=== PATIENT | female | born 1940 | race Caucasian/White ===

== ENCOUNTER 2017-03-13 22:14 | Inpatient (IN) | payer OTHER ==
--- NOTE | ~2017-03-13 | HP ---
History And Physical [place] [address] [facility] [place]. [address] NAME: SOPHIE NEGRON : 42 STATUS : ADM IN [facility]#: [id number] AGE: 76 ADM/REG DATE : 03/13/17 MR#: [id number] REPORT SERV DATE: 03/14/17 DICTATED BY: SEFERINO IQBAL III DATE: 03/14/17 REPORT STATUS : Draft TRANSCRIBED BY: MODL DATE: 03/14/17 DATE OF ADMISSION: 03/13/2017 HISTORY OF PRESENT ILLNESS: This 76-year-old female is admitted to the hospital in direct transfer from the emergency room at [facility] at the patient's request. The patient complains of a 24-hour history of profuse nausea and vomiting. She states that she awoke at 3 o'clock in a.m. yesterday with severe nausea and vomiting. This was associated with diffuse crampy abdominal pain. These symptoms persisted. The patient presented to the emergency room and a CT scan of the abdomen and pelvis was performed there, which showed evidence for partial small bowel obstruction. The patient was evaluated there and felt to be stable for transfer and was transferred here at the patient's request. This morning, she states she feels better. She has only mild abdominal pain. The patient has no prior history of similar symptoms. She has had no diarrhea. She has had no fever or chills. She had one bowel movement yesterday. The patient has had a previous appendectomy, cholecystectomy, and hysterectomy. REVIEW OF SYSTEMS: The patient complains of left-sided earache for sometime. She has been seen by her primary care physician regarding this as well as an ENT physician and was started recently on antibiotics. ALLERGIES: NONE. PAST SURGICAL HISTORY: Includes status post hysterectomy, cholecystectomy, and appendectomy. MEDICATION: Iron. FAMILY HISTORY: Unremarkable. PHYSICAL EXAMINATION: GENERAL: She is a female, in no acute distress. She is alert and oriented x3. VITAL SIGNS: Blood pressure 90/54, pulse 86, temperature 98.4. HEENT: Unremarkable. Cranial cervical II through XII were normal. LUNGS: Clear. CARDIAC: Normal. ABDOMEN: Soft, flat and completely nontender. EXTREMITIES: Normal with no edema. DIAGNOSTIC DATA: CT scan of the abdomen and pelvis reportedly shows evidence for partial small bowel obstruction. This was performed at [facility]. I do not have this available for review, but this was resulted according to Dr. Frey the ER physician who evaluated her at [facility]. History And Physical [address] [address] NAME: SOPHIE NEGRON : 42 STATUS : ADM IN PAT#: [id number] AGE: 76 ADM/REG DATE : 03/13/17 MR#: [id number] REPORT SERV DATE: 03/14/17 DICTATED BY: SEFERINO IQBAL III DATE: 03/14/17 REPORT STATUS : Draft TRANSCRIBED BY: KALEB DATE: 03/14/17 LABORATORY DATA: White blood cell count 13,000, hematocrit 41. Electrolytes are unremarkable. ASSESSMENT: A 76-year-old female with acute onset of nausea, vomiting, abdominal pain, possibly secondary to partial small bowel obstruction. PLAN: The patient will be admitted and started on parenteral fluids and bowel rest. I have requested a repeat KUB for today. At this time, the patient's symptoms seem to be resolving spontaneously. I have explained her that surgical intervention may be required if she does not improve with nonoperative management, but this seems to be unlikely. This plan has been explained to the patient. Her questions have been answered. She understands and agrees to this plan. CRAIG/KALEB Seferino Iqbal III, M.D. / [id number] CC: Seferino Iqbal III, M.D.
[~2017-03-13 22:14] MED LIST: ASAB PO; ASABAYER PO; CALTRAT600 PO; CENTRUM TAB1 TAB PO; FISH-EPA1000 MG PO; IRON325 MG PO; NIACIN 500 PO; OS500+D PO; VITAMIN D1000 UNI1 PO
[2017-03-13 22:59] LABS: BASOPHILS 0.2 %; BASOPHILS ABSOLUTE 0.02 10/3/uL (0.0-0.16); EOSINOPHILS 0 %; HEMATOCRIT 41.3 % (36.0-48.0); HEMOGLOBIN 13.8 g/dL (12.0-16.0); IMMATURE GRANULOCYTES 0.2 %; IMMATURE GRANULOCYTES ABSOLUTE 0.02 10/3/uL (0.0-0.11); LYMPHOCYTES 16.3 %; LYMPHOCYTES ABSOLUTE 2.12 10/3/uL (0.67-4.30); MEAN CORPUS HGB CONC 33.4 g/dL (32.0-36.0); MEAN CORPUSCULAR HEMOGLOB 27.9 pg (26.0-34.0); MEAN CORPUSCULAR VOLUME 83.4 fL (80-100); MONOCYTES 10.5 %; MONOCYTES ABSOLUTE 1.36 10/3/uL (0.21-1.20); NEUTROPHILS 72.8 %; NEUTROPHILS ABSOLUTE 9.48 10/3/uL (2.02-8.40); PLATELET COUNT 385 10/3/uL (150-400); RBC DISTRIBUTION WIDTH 14.4 % (12.0-16.0); RED CELL COUNT 4.95 10/6/uL (4.0-5.6)
[2017-03-13 23:00] LABS: MANUAL DIFF NO %
[2017-03-13 23:15] LABS: ALBUMIN 2.8 G/DL (3.5-5.0); ALKALINE PHOSPHATASE 69 U/L (45-117); BUN (BLOOD UREA NITROGEN) 12 MG/DL (6-23); CHLORIDE, SERUM 111 MMOL/L (96-112); CREATININE 0.48 MG/DL (0.55-1.02); GFR AFRICAN AMERICAN 111 ML/MIN (>=60); GFR NON AFRICAN AMERICAN 96 ML/MIN (>=60); GLOBULIN 2.8 G/DL (2.5-4.1); POTASSIUM, SERUM 3.8 MMOL/L (3.5-5.3); SGOT(AST) 22 U/L (5-40); SGPT(ALT) 25 U/L (5-65); SODIUM, SERUM 141 MMOL/L (135-148); TOTAL BILIRUBIN 0.4 MG/DL (0-1.2); TOTAL PROTEIN 5.6 G/DL (6.0-8.5)
[2017-03-13 23:16] LABS: CO2 (CARBON DIOXIDE) 22 MMOL/L (24-34); GLUCOSE, SERUM 106 MG/DL (60-99)
[2017-03-14 08:55] LABS: BASOPHILS 0.3 %; BASOPHILS ABSOLUTE 0.02 10/3/uL (0.0-0.16); EOSINOPHILS 0.5 %; EOSINOPHILS ABSOLUTE 0.03 10/3/uL (0.0-0.53); HEMATOCRIT 40.7 % (36.0-48.0); HEMOGLOBIN 13.5 g/dL (12.0-16.0); IMMATURE GRANULOCYTES 0.3 %; IMMATURE GRANULOCYTES ABSOLUTE 0.02 10/3/uL (0.0-0.11); LYMPHOCYTES 22.6 %; LYMPHOCYTES ABSOLUTE 1.35 10/3/uL (0.67-4.30); MEAN CORPUS HGB CONC 33.2 g/dL (32.0-36.0); MEAN CORPUSCULAR HEMOGLOB 28.1 pg (26.0-34.0); MEAN CORPUSCULAR VOLUME 84.8 fL (80-100); MEAN PLATELET VOLUME 10.3 fL (9.2-13.0); MONOCYTES 15.1 %; NEUTROPHILS 61.2 %; NEUTROPHILS ABSOLUTE 3.65 10/3/uL (2.02-8.40); PLATELET COUNT 360 10/3/uL (150-400); RBC DISTRIBUTION WIDTH 14.6 % (12.0-16.0)
[2017-03-14 08:57] LABS: MANUAL DIFF NO %
[2017-03-14 09:05] LABS: BUN (BLOOD UREA NITROGEN) 12 MG/DL (6-23); CALCIUM, SERUM 7.6 MG/DL (8.5-10.4); CHLORIDE, SERUM 112 MMOL/L (96-112); CO2 (CARBON DIOXIDE) 23 MMOL/L (24-34); GFR AFRICAN AMERICAN 103 ML/MIN (>=60); GFR NON AFRICAN AMERICAN 89 ML/MIN (>=60); GLUCOSE, SERUM 100 MG/DL (60-99); POTASSIUM, SERUM 3.8 MMOL/L (3.5-5.3); SODIUM, SERUM 142 MMOL/L (135-148)
[2017-03-14] MEDS ORDERED: FERROUS SULF325 M1 PO (13:37)
[2017-03-15 06:34] LABS: BASOPHILS 0.3 %; BASOPHILS ABSOLUTE 0.01 10/3/uL (0.0-0.16); EOSINOPHILS 3.4 %; EOSINOPHILS ABSOLUTE 0.12 10/3/uL (0.0-0.53); HEMATOCRIT 34.3 % (36.0-48.0); HEMOGLOBIN 11.3 g/dL (12.0-16.0); LYMPHOCYTES 53.1 %; LYMPHOCYTES ABSOLUTE 1.86 10/3/uL (0.67-4.30); MANUAL DIFF NO %; MEAN CORPUS HGB CONC 32.9 g/dL (32.0-36.0); MEAN CORPUSCULAR HEMOGLOB 28.2 pg (26.0-34.0); MEAN CORPUSCULAR VOLUME 85.5 fL (80-100); MEAN PLATELET VOLUME 10.2 fL (9.2-13.0); MONOCYTES ABSOLUTE 0.49 10/3/uL (0.21-1.20); NEUTROPHILS 29.2 %; NEUTROPHILS ABSOLUTE 1.02 10/3/uL (2.02-8.40); PLATELET COUNT 274 10/3/uL (150-400); RBC DISTRIBUTION WIDTH 14.8 % (12.0-16.0); RED CELL COUNT 4.01 10/6/uL (4.0-5.6); WHITE BLOOD CELLS 3.5 10/3/uL (4.5-10.5)
[2017-03-15 06:43] LABS: CALCIUM, SERUM 7.5 MG/DL (8.5-10.4); CHLORIDE, SERUM 117 MMOL/L (96-112); CO2 (CARBON DIOXIDE) 22 MMOL/L (24-34); CREATININE 0.47 MG/DL (0.55-1.02); GFR AFRICAN AMERICAN 112 ML/MIN (>=60); GFR NON AFRICAN AMERICAN 97 ML/MIN (>=60); GLUCOSE, SERUM 96 MG/DL (60-99); POTASSIUM, SERUM 4.1 MMOL/L (3.5-5.3); SODIUM, SERUM 144 MMOL/L (135-148)
[2017-03-15 06:44] LABS: BUN (BLOOD UREA NITROGEN) 3 MG/DL (6-23)
[2017-03-15] MEDS ORDERED: ZOFRAN4 PO (08:57)
== END 2017-03-15 11:19 | disposition home or self-care (01) | DRG 390 ==
LOC: 5SO 22:14
PROVIDERS: Surgery
DX: K56.69 Other intestinal obstruction (principal); H92.02 Otalgia, left ear; Z90.710 Acquired absence of both cervix and uterus; Z90.49 Acquired absence of other specified parts of digestive tract; Z98.890 Other specified postprocedural states
CPT/HCPCS: 74020; 80048; 80053; 85025; 87493; 87493-59